=== PATIENT | female | born 2000 | race Caucasian/White ===

== ENCOUNTER 2023-11-30 12:16 | Emergency (ER) | payer SELFPAY ==
[~2023-11-30] VITALS: Ht 152.4 cm; Wt 54.4 kg
[2023-11-30 12:23] VITALS: TEMP 99.9; O2SAT 98
[2023-11-30 12:32] VITALS: O2SAT 100
[2023-11-30 13:44] VITALS: BP 100/65; PULSE 67; RESP 16
[2023-11-30] MEDS: IBUPROFEN 400MG TABLET PO ONE (13:44)
[2023-11-30] MEDS: ACETAMINOPHEN 325MG TABLET PO ONE (13:44)
[2023-11-30] MEDS ORDERED: ACET-2708 MT (16:40)
[2023-11-30] MEDS ORDERED: IBUP-2028 MT (16:40)
== END 2023-11-30 17:16 | disposition home or self-care (01) ==
LOC: ER 12:16
DX: J02.9 Acute pharyngitis, unspecified (principal); R51.9 Headache, unspecified; R50.9 Fever, unspecified; Z20.822 Contact with and (suspected) exposure to COVID-19
CPT/HCPCS: 81025; 87070; 87426; 87430; 87804; 99283